=== PATIENT | male | born 1945 | race Caucasian/White ===

== ENCOUNTER → 2024-08-11 | Outpatient (CLI) | payer MEDICARE ==
--- NOTE | 2024-08-11 15:36 | CT ---
EXAMINATION TYPE: CT abdomen wo con DATE OF EXAM: 08/11/2024 11:54 AM COMPARISON: None CLINICAL INDICATION: Male, 79 years old with history of R10.9 CONSTIPATION UNSPEC K59.0 UNSPEC ABDOM PAIN; Abdominal pain and constipation TECHNIQUE: Axial CT abdomen wo con;Sagittal and coronal reformats were created on a separate worksta tion. Contrast used: mL of , (none if empty) Oral contrast used: without Oral Contrast (none if empty) CT DLP: 521 mGycm, Automated exposure control for dose reduction was used. FINDINGS: LOWER CHEST: Scattered calcified granulomas. ABDOMEN LIVER: Unremarkable GALLBLADDER AND BILE DUCTS: The gallbladder is surgically absent. PANCREAS: Unremarkable. SPLEEN: Scattered calcified granulomas. ADRENAL GLANDS: Unremarkable. KIDNEYS AND URETERS: No evidence of hydronephrosis or obstructing renal calculus. The ureters are unr emarkable. Simple appearing bilateral renal cysts. No follow-up recommended. Nonobstructing bilate ral renal calculi measuring up to 4 mm. ABDOMEN & PELVIS STOMACH AND BOWEL: No evidence of bowel obstruction. The appendix is not visualized/non the field-of- view. Second portion duodenal diverticulum. Moderate stool burden throughout the colon. PERITONEUM/RETROPERITONEUM: No evidence of pneumoperitoneum or free fluid. VASCULATURE: No evidence of aortic aneurysm. MUSCULOSKELETAL: No acute osseous abnormalities. Moderate disc degeneration changes are present throu ghout the thoracolumbar spine. LYMPH NODES: No gross evidence for lymphadenopathy. SOFT TISSUE/ABDOMINAL WALL: Unremarkable IMPRESSION: 1. No evidence for acute pelvic process. 2. Moderate amount of stool throughout the colon. 3. 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 4. Nonobstructing bilateral renal calculi. 5. Simple appearing renal cysts. No follow-up recommended. 6. Colonic diverticulosis. [facility], , 08/11/2024 3:34 PM
== END | disposition home or self-care (01) ==
LOC: RADCTMAIN 11:00
PROVIDERS: ATTEND Family Medicine
DX: N20.0 Calculus of kidney (principal); N28.1 Cyst of kidney, acquired; K57.30 Diverticulosis of large intestine without perforation or abscess without bleeding; D73.89 Other diseases of spleen; J84.10 Pulmonary fibrosis, unspecified
CPT/HCPCS: 74150